=== PATIENT | male | born 1950 | race Caucasian/White ===

== ENCOUNTER 2016-06-25 09:00 | Emergency (ER) | payer BC ==
[~2016-06-25] VITALS: Ht 170.2 cm; Wt 65.8 kg
[~2016-06-25 09:00] MED LIST: ASPIRIN 325MG325 MG PO; ATORVASTATIN CA10 MG PO; GLUCOSAMINE & C1 CA1 PO; IBUPROFEN800 MG PO; LISINOPRIL 10MG10 MG PO; NICODERM C21 MG/24 H TD; NORVASC 10MG. T10 MG PO; PROMETHAZINE HC25 M1 PO; SINUS TABLETS N1 TAB PO; VICODIN 5/500 T1 TAB PO
[2016-06-25] MEDS ORDERED: MEDROL 4MG. DOSE4 MG PO (09:34)
[2016-06-25] MEDS ORDERED: FLONASE 50 MCG16 GM (09:34)
[2016-06-25] MEDS ORDERED: ZITHROMAX Z PA250 MG PO (09:34)
--- NOTE | 2016-06-25 09:36 | Urgent Treatment Center Report ---
History of Present Issue Date/Time Seen by Provider 06/25/16 0918 Visit Reason Pt arrived:Walked Presenting Problem:PT STATES COUGH FOR PAST TWO DAYS. STATES RUNNY NOSE, DRAINAGE THAT IRRITATES HIS THROAT Location if Accident: Onset of symptoms date/time:06/23/16/ or onset unknown for:MEDICAL HX UNKNOWN Have you (or family members/close friends) recently traveled outside the [place]? N If Yes, where/when: Have you had exposure to infectious disease within the past month? TB? Other? Specify: Patient states that he has not felt good for 2-3 days states that he has had cough, congestion, runny nose, drainage and sore throat. States that it has continued to get worse and over all he feels tired and ill. states that he does not like coming to the doctor so she has had to convince him to come. Patient state that cough has been productive at times but he did not look at it to see what color he was coughing up. States that his finally made him come in today because he kept up her up all night coughing ALLERGIES Coded Allergies: No Known Allergies (06/25/16) Home Medications Active Scripts LISINOPRIL (Lisinopril) 10 MG PO DAILY #30 TAB Ref 2 Prov: 03/27/13 ATORVASTATIN CALCIUM (ATORVASTATIN 10MG) 10 MG PO QHS #30 TAB Ref 2 Prov: 03/27/13 Reported Medications GLUC GODINEZ DIPO CH/STANLEY GODINEZ/C/KIM (Glucosamine-Chondroitin Capsul) 2 CAP PO DAILY Acetaminophen/Pseudoephedrin (Sinus Tablets No Drowsiness) 1 TAB PO DAILY AMLODIPINE BESYLATE (Norvasc) 10 MG PO DAILY PROMETHAZINE HCL (Promethazine 25mg Tab) 25 MG PO Q4HP PRN N/V Ibuprofen (Ibuprofen 800MG) 800 MG PO TID ASPIRIN (Aspirin 325MG) 325 MG PO DAILY History Medical History General CAD? No Angina: No SD: No Hypertension? Yes Hyperlipidemia? Yes CHF? No DVT? No PE? No COPD? No Asthma? No Anemia? No GERD? Yes Gastric ulcers? No GI Bleed? No Hernia? No Thyroid Problems? No Hypothyroidism? No CVA? Yes Seizures? No Diabetes? No Renal Insuffiency? No UTI? No Stones? No GB Disease: No Nephritic Syndrome? No Asplenia? No Hepatitis? No Sickle Cell Disease? No Arthritis? No Migraines? No Cataracts? Yes Glaucoma? No MRSA? No HIV? No TB? No Anxiety? No Depression? No Cancer? No Immunization HX DT/Tetanus > 10 YRS Flu Refused Pneumonia Refuses Surgical Hx Previous Surgery?Y Eye Family History Family HX Diabetes Yes CAD No Hypertension No Hyperlipidemia No Cancer Yes TB No Social History Smoking Hx Smoker: Current Some Day Smoker Tobacco: Yes Type N/A Packs/day < 1 Pack Alcohol Alcohol: Yes Review of Systems All Other Systems Reviewed and Negative Constitutional weakness ENT nose discharge, nose congestion, throat pain. Respiratory cough Comment Not felt well for several days with productive cough that got worse last night and prevented him from sleeping, state that throat is sore and irritated and he blowing greenish mucous from his nose Physical Exam Vital Signs Vital Signs Date Time Temp Pulse Resp B/P Pulse O2 O2 Flow FiO2 Ox Delivery Rate 06/25 906 97.9 77 18 124/77 95 General Appearance Patient pale in color, appears ill Ear, Nose, Throat sinus pain/drainage, nasal congestion, throat red and irritated, greenish mucous noted in nares Respiratory Status Yes: trachea midline, chest symmetrical, non tender chest. No: respiratory distress. Lung Sounds bilateral: rhonchi, wheezing. 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 Drainage noted in back of throat and redness bilateral nares Medical Decision Making LABS/Meds/Orders Pt receiving controlled substance in ED? No Results/Orders Current Medication Orders Sig/Jhonny Start time Last Medication Dose Route Stop Time Status Admin Albuterol/Ipratropium 3 ML ONCE ONE 06/25 929 DC 06/25 INH 06/25 Albuterol/Ipratropium 0 .STK-MED ONE 06/25 926 DC INH Orders Procedure Date/time Status RT REQUEST DUONEB 06/26 923 Active CHEST(2 VIEWS-NOT PORTABLE) 06/25 912 Active XRAY/CT/US XRAY/CT/US XRAY chest XR interpretation by reviewed by me Xray Results no infiltrates Progress UTC Progress Notes Date 06/25/16 Time 0940 Comment after duoneb wheezing now diminished Departure Departure Time of Disposition 0931 Disposition DC Home or Self Care(routine) Clinical Impression Primary Impression: Upper respiratory infection Qualifiers: URI type: unspecified URI Qualified Code: J06.9 - Acute upper respiratory infection, unspecified Condition STABLE Referrals Sammy BERGERON,Anam (Family) Patient Instructions Cough, DI for Cough -- Adult, DI for Sinusitis, Sore Throat Additional Instructions * Monitor Temp. Tylenol and/or Ibuprofen as needed. ER if fever is no less than 101 despite alternating Tylenol and Ibuprofen * Encourage fluids, water, Gatorade, powerade, pedialyte * Warm salt water gargles for throat irritation *Warm fluids *Sore throat lozenges Follow up IMMEDIATELY for new or worsening of symptoms OR no noticeable improvement over the next 48-72 hours. 911 immediately for any life threatening symptoms such as chest pain or difficulty breathing Follow up with family doctor Return if needed Discharge Counseling Counseled pt/family regarding diagnosis, test results, medications/RX, home care, follow up needs Prescriptions Current Visit Scripts Azithromycin (Zithromycin (Z-RASHEED) 250MG Tab) 250 MG PO DAILY #6 TAB TAKE TWO (2) TABLETS ON DAY 1, THEN ONE (1) TABLET DAY #2 THRU #5 Fluticasone Propionate (Flonase 50 Mcg Nasal [place]) 2 SPRAY NA DAILY #1 BOT Methylprednisolone (Medrol Dose Rasheed) 4 MG PO UD #1 RASHEED TAKE DIRECTED ON PACKAGING at 0941
[2016-06-25 09:48] VITALS: BP 124/77
--- NOTE | 2016-06-25 11:50 | RADIOLOGY REPORT PS360 ---
CHEST(2 VIEWS-NOT PORTABLE) Ordering Physician: GRACE MENENDEZ APRN Patient Age: 65 years: Male HISTORY: COUGH, CONGESTION3 days TECHNIQUE: PA and lateral chest FINDINGS No prior studies for comparison Lungs appear mildly hyperexpanded. No prominent findings. However I would question a vague subtle nearly 2.5 cm density at the left lower lobe retrocardiac. This is seen region just anterior to the T-spine on lateral view. Could not exclude a small patchy focal infiltrate or subtle round pneumonia..This is a Equivocal observation but noted & warrants follow-up . I would encourage a follow-up chest film within the next 2 months to exclude underlying lesion. If patient does have a significant history of smoking may want to consider CT to further evaluate. Upper lung lopez appear clear. The heart is normal in size. The sosa and mediastinal structures appear satisfactory . T-spine intact IMPRESSION: . No prominent findings. However would question a very subtle vague 2 cm x 2.5 cm area of low density retrocardiac region. Possible patchy area of infiltrate. Follow-up chest film in 2 months recommended better exclude unlikely lesion. If patient a smoker consider CT chest This vague, equivocal density may merely be due to overlapping shadows
--- OUTSIDE RECORDS SUMMARY | 2016-06-26 22:13 | External Medical Summary Rpt ---
Author Author [employer] Rodriguez, [employer] Organization [employer] Address Unknown Phone Unavailable
--- OUTSIDE RECORDS SUMMARY | 2016-06-26 22:13 | External Medical Summary Rpt ---
Author Author , Organization [employer] Address Unknown Phone Unavailable Purpose Continuity of Care Document - through 2016
--- OUTSIDE RECORDS SUMMARY | 2016-06-26 22:13 | External Medical Summary Rpt ---
Demographics Preferred Language [place] Marital Status Unknown Hoahaoism Affiliation Unknown Race Unknown Ethnic Group Unknown Author Author , Organization [employer] Address Unknown Phone Unavailable Purpose Continuity of Care Document - through 2016 Immunization No patient found.
--- OUTSIDE RECORDS SUMMARY | 2016-06-26 22:13 | External Medical Summary Rpt ---
Author Author [employer] Organization [employer] Address Unknown Phone Unavailable Purpose Continuity of Care Document - through 2016
--- OUTSIDE RECORDS SUMMARY | 2016-06-26 22:13 | External Medical Summary Rpt ---
Demographics Preferred Language [place]an Marital Status Unknown Druze Affiliation Unknown Race Unknown Ethnic Group Unknown Author Author , Organization [employer] Address Unknown Phone Unavailable Purpose Continuity of Care Document - through 2016 Immunization No patient found.
== END 2016-06-25 09:49 | disposition home or self-care (01) ==
LOC: UTC 09:00
DX: J06.9 Acute upper respiratory infection, unspecified (principal)